=== PATIENT | female | born 1990 | race Caucasian/White ===

== ENCOUNTER 2017-04-12 21:07 | Inpatient (IN) | payer OTHER ==
[~2017-04-12] VITALS: Ht 170.2 cm; Wt 95.7 kg
[2017-04-12] MEDS ORDERED: Sodium Chloride LOK Flush 10 mL Syringe IVFLUSH PRN (21:50)
[2017-04-12] MEDS ORDERED: Hemorrhage Kit, Post Partum XX ONE (21:50)
[2017-04-12] MEDS ORDERED: Methylergonovine 0.2 mg/mL Inj IM PRN (21:50)
[2017-04-12] MEDS ORDERED: Oxytocin 10 Unit/mL Inj IM PRN (21:50)
[2017-04-12] MEDS ORDERED: Oxytocin 30 Units/500 mL LR 30 UNITS in IV Premix 1 EACH IV PRN (21:50)
[2017-04-12] MEDS ORDERED: Ondansetron 2 mg/mL 2 mL Inj IVPUSH PRN (21:50)
[2017-04-12] MEDS ORDERED: Carboprost 250 mCg/mL Inj IM PRN (21:50)
[2017-04-12] MEDS ORDERED: Penicillin G K Inj 5,000,000 UNITS in Dextrose 5% Minibag Plus 100 ML IV ONE (21:55)
[2017-04-12 23:39] LABS: Mean Corpuscular Volume 84.2 fL (81-100)
[2017-04-13] MEDS: Lactated Ringer's 1,000 ML IV PRN ×3 (01:10→06:16)
[2017-04-13] MEDS ORDERED: Oxytocin 30 Units/500 mL LR 30 UNITS in IV Premix 1 EACH IV PRN ×2 (01:15→19:50)
--- NOTE | 2017-04-13 02:18 | HP ---
[address] [address] HISTORY AND PHYSICAL PATIENT: GEORGE HAYWOOD : 1990 MR#: [id number] ADMIT: 04/12/2017 JOB ID: [id number] CHIEF COMPLAINT: Gush of fluid. HISTORY OF PRESENTING ILLNESS: This is a 26 years old 3, para 2-0-0-2, at 40 weeks and 4 days with expected date of delivery of April 09, 2017, dated by last menstrual period, presented with history of gush of fluid started at 17:30. Fluid was clear. The patient reports good movement. She was feeling contractions every 20 minutes. By the time she presented to the hospital she feels her contractions spaced out to be less frequent than every 20 minutes. Blood pressure mildly elevated at presentation as high as 143/92, but mostly at 130s/80s. Denies headache, change in vision. Denies nausea, vomiting or epigastric pain. complicated with history of previous section preceded by normal vaginal delivery at term. was done for arrest of dilatation at 5.5 cm. The patient presented with premature rupture of membranes. Ramos bulb was inserted then Pitocin was started and she progressed to 5.5 cm with no further progress. The patient states that cephalic presentation was confirmed by ultrasound prior to the induction. (2) History of retained IUD. There was no uterine perforation as per reviewed operative report from November 28, 2014. Surgery was done at [place], [place]. Surgery was done by Dr. Harper, and as per surgical report that after cervical dilatation IUD was visualized. The tip of the IUD was grasped and the IUD was rotated 90 degrees and pulled out of the uterus. No hysteroscopy was needed and no laparoscopy was needed. GYNECOLOGIC HISTORY: Menarche at age 11. Last menstrual period was July 03, 2016. Regular menstrual cycles. Denies history of sexually transmitted infections. Denies history of abnormal Pap smears. PAST OBSTETRIC HISTORY: 1. First was January 2014, delivered at 41 weeks gestation. Delivered a female , weight 7 pounds 2 ounces. 2. Second was in October 2015, delivered at 38 weeks gestation via section for arrest of dilatation. Outcome was a male infant, 7 pounds and 3 ounces. The patient presented with premature rupture of membranes. Ramos bulb was inserted and Pitocin was started and she arrested at 5.5 cm. PAST MEDICAL HISTORY: History of active airway disease during her previous in 2015, resolved after . Denies use of an inhalers between pregnancies or during this current . PAST SURGICAL HISTORY: 1. section x1 in 2014. 2. Tonsillectomy at age [age]. 3. Gluteal abscess, was surgically drained with debridement for suspected MRSA infection. Cultures were negative, though patient was in contact with her son who had an MRSA infection at that time. Antibiotics were started before the culture, which may have affected the culture result. Gluteal abscess surgery was done by Dr. Rodriguez. 4. IUD removal under general anesthesia with no laparoscopy, no laparotomy, and no hysteroscopy was needed for the removal. No evidence of mention of uterine perforation as per surgical report that was obtained from [facility] and is available in the paper chart and will be sent for scanning. ALLERGIES: No known drug allergies. MEDICATIONS: 1. vitamins. 2. Used Macrobid during this for a UTI. 3. Used Zofran for nausea and vomiting. FAMILY HISTORY: Mother is healthy. Father has hypertension. Several members on her father's family side have hypertension. Sister is healthy. No family history of twins, congenital deformities, mental or developmental disease. No family history of cancer. SOCIAL HISTORY: Denies smoking, alcohol, or illicit drug abuse. REVIEW OF SYSTEMS: A 10-point review of system is negative except for the items mentioned in the history of presenting illness. PHYSICAL EXAMINATION: Vital signs: Blood pressure mostly in 130s/80s and as high as 143/92. Heart rate 81, temperature 36.8. heart tones baseline 130, moderate variability, positive accelerations, no decelerations. Contractions irregular every 4-9 minutes. General: Alert, oriented to time, place, and person. Head is normocephalic, atraumatic. Neck is supple. Chest: Equal air entry bilaterally. No added sound. Cardiovascular: S1 plus S2 plus 0. Regular rate and rhythm. Abdomen: Gravid. No tenderness. No uterine tenderness. No incisional tenderness. Estimated weight by Bob's maneuver is 8 pounds. Cervical exam: Cervix is 4 cm, 70%, -2, soft and posterior. Patel's score of 7. Bedside ultrasound confirmed cephalic presentation. LABORATORIES: Blood type is O-positive. Antibody screening is negative. Rubella immune. RPR nonreactive. Hepatitis B surface antigen negative, HIV negative, varicella immune. HIV negative. Diabetes screening on January 28, 2017, was within normal limits 88. Group B strep positive on March 02, 2017. ADMISSION LABORATORIES: CBC: White blood cells 13.2, hemoglobin 10.6, hematocrit 31.9, platelets 307. BUN 11, creatinine 0.53, uric acid 5.4, AST 16, ALT 16. Urine random creatinine 170, urine random total protein 11, protein to creatinine ratio 0.06. Gonorrhea and chlamydia DNA urine screen pending. ASSESSMENT: This is a 26 years old 3, para 2-0-0-2, at 40 weeks and 4 days, with expected date of delivery of April 09, 2017, presented with spontaneous rupture of membranes and early labor. GBS positive. History of previous one section preceded with one vaginal delivery, both were at term. History of possible methicillin-resistant Staphylococcus aureus based on history and presentation and no positive culture. PLAN: Discussed with patient risks, benefits and alternatives of elective section versus trial of labor after section. Risk of trial of labor after section was reviewed with the patient. Calculated success rate is 70%. Pitocin is recommended after SROM to augment labor and shorten the latent phase to decrease risk of infection. Use of pitocin may increase risk of uterine rupture to approximately 1.5% to 1.7%, which is higher in a woman who undergoes induction of labor compared to a woman who goes into spontaneous labor where risk of uterine rupture is approximately 0.7%. Risk of section which includes, not limited to, risk of infection, bleeding, injury to other organs, nerve injury, risks of blood transfusion, risk of anesthesia, effect on future fertility were discussed with the patient in details. All risks associated with section is higher if section is performed after a failed trial of labor after section compared to elective repeat section. All questions were answered. The patient desires to proceed with a trial of labor after section. Patient signed informed consent earlier in the office with Dr. Alicia. A copy of the consent is in the chart. Induction of labor consent was signed today. Risks, benefits and alternatives of induction were discussed with the patient. Expectant management verses augmentation with Pitocin were discussed in details. Patient desires to proceed with Pitocin. Penicillin started for group B strep positive. Swabs were collected for MRSA screening. Continue close monitoring of contraction and heart tones tracing. MTDD
[2017-04-13] MEDS: Penicillin G K Inj 3,000,000 UNITS in IV Premix 1 EACH IV SCH ×4 (05:32→18:10)
[2017-04-13] MEDS: fentaNYL-PF 50 mCg/mL 2 mL Inj IVPUSH PRN ×2 (07:20→12:27)
[2017-04-13] MEDS: Lactated Ringer's 1,000 ML IV SCH ×2 (10:29→15:10)
[2017-04-13] MEDS ORDERED: Phenylephrine/NS-PF 100 mCg/mL 5 mL Syringe IVPUSH ONE (11:17)
[2017-04-13] MEDS ORDERED: Ondansetron 2 mg/mL 2 mL Inj ONE (11:17)
[2017-04-13] MEDS ORDERED: Oxytocin 10 Unit/mL Inj ONE (11:17)
[2017-04-13] MEDS ORDERED: fentaNYL 2 mCg/mL-Bupivicaine 0.125% 100 mL Premix EPIDURAL ONE (15:06)
[2017-04-13] MEDS ORDERED: Lactated Ringer's 500 ML IV ONE (15:26)
[2017-04-13] MEDS ORDERED: Lactated Ringer's 1,000 ML IV SCH ×2 (15:26→19:49)
[2017-04-13] MEDS ORDERED: Atropine 1 mg/10 mL (Code) Syringe IVPUSH PRN (15:30)
[2017-04-13] MEDS ORDERED: EPHEDrine Sulfate 50 mg/mL Inj IVPUSH PRN (15:30)
[2017-04-13] MEDS ORDERED: fentaNYL 2 mCg/mL-Bupiv 0.125% 100 ML EPIDURAL SCH (15:30)
--- NOTE | 2017-04-13 15:31 | PCM.HPANE ---
Patient Data Surgeon Admitting Provider:Shahid Caballero DO Attending Provider:Shahid Caballero DO Primary Care Physician:Shahid Caballero DO Other Provider:Ezequiel Fraser Anesthesia Reason for Visit Term Labor TERM LABOR Ht/WT & BMI Body Mass Index Allergies Coded Allergies: No Known Allergies (Unverified , 04/12/17) Past Anesthesia History Anesthesia History: Denies:: Abnormal Airway, Anesthesia Reactions, Difficult Intubation, Fam Anesthesia Reaction, Fam Malignant Hypertherm, Malignant Hyperthermia Diabetes History Hx Diabetes?: No MRSA MRSA: No History History of ENT Problems?: No HEENT History: Denies:: Abnormal Airway Cataracts Difficult Intubation Dysphagia Glaucoma Hearing Problem Sinus Problem TMJ Denture Type: None Teeth Condition: Within Normal Limits Hx of Heart Problems?: No Cardiovascular History: Denies:: AICD Abdominal Aortic Aneurism Atrial Fibrillation Cardiac Surgery Chest Pain Congestive Heart Failure Coronary Artery Disease Edema Heart Murmur Hypertension Irregular Heartbeat Pacemaker Peripheral Vascular Rheumatic Fever Thrombophlebitis Valvular Heart Disease Hx of Respiratory Problem?: No Respiratory History: Denies:: Asthma COPD Chest Surgery Cough Dyspnea Emphysema Hemoptysis Oxygen Administration Pneumonia Pulmonary Embolism Tuberculosis Use of C-PAP Machine Use of Inhalers / NEBS Hx Neurologic Problems?: No Neurological History: Denies:: Alzheimer's Disease CVA Dementia Dizziness Headaches Multiple Sclerosis Parkinson's Disease Peripheral Neuropathy Seizures TIA Hx of GI Problems?: No Gastrointestinal History: Denies:: Cirrhosis Diverticulitis Gall Bladder Disease Gastroesphageal Reflux Gastrointestinal Bleeding Heartburn Hepatitis Hiatal Hernia Liver Disease Rectal Bleeding Hx of Problems?: No Genitourinary History: Denies:: HX of Hemodialysis Kidney Stones Urinary Tract Infection HX of Peritoneal Dialysis: No Female Hx: Positive for:: Currently Skin History: Denies:: History Skin Disorders? Pressure Ulcers Hx Musculoskeletal Problems?: No Musculoskeletal History: Denies:: Back Injury Degenerative Joint Fibromyalgia Joint Replacement Musculoskeletal Trauma Myasthenia Gravis Osteoarthritis Rheumatoid Arthritis Systemic Lupus Hx of Psycho/Social Problems?: No Hx Surgeries?: Yes Hx Any Other Health Problems?: No Other History: Denies:: Cancer Endocrine Disease Hospitalization Thyroid Disease History Blood Transfusions: Denies:: Accept Blood Products? Blood Transfuse Reaction Blood Transfusions Hx Diabetes: No Stop/Bang LESLYE Risk Assessment: Low Risk, <3 Yes Risk Assessment Category Category 1A: Patient has history of documented sleep apnea, and HAS NOT received any narcotic, sedative or anesthesia administration during this stay. Category 1B: Patient has history of documented sleep apnea, and HAS received any narcotic , sedative or anesthesia administration during this stay Category 2: Patient has SUSPECTED Obstructive Sleep Apnea, and HAS received any narcotic , sedative or anesthesia administration during this stay. Category 3: Patient has SUSPECTED Obstructive Sleep Apnea and HAS NOT received narcotic, sedative or anesthesia administration during this stay. Category 4: Outpatient in Procedural Areas with known sleep apnea or who screen positive for High Risk via the STOP/BANG questionnaire. Exam Exam General Appearance: Alert HEENT/AIRWAY: MP 1 Lungs: Clear to Auscultation Heart: Exam Unremarkable Meds/Labs/Diagnostics Admission Meds Current Medications Penicillin G Potassium 3359805 units/Dextrose/ Water 100 ml @ 240 mls/hr ONCE ONCE IV Last administered on 04/13/17 01:24; Start 04/12/17 at 21:55; Stop at 22:19; Status DC Penicillin G Potassium/ Dextrose [id number] units/Premix 50 ml @ 100 mls/hr Q4 IV Last administered on 04/13/17 13:50; Start 04/13/17 at 04:30 Lactated Ringer's (Lr) 1,000 ml @ 125 mls/hr Q8H IV Last administered on 15:10; Start 04/13/17 at 01:12 Labs Test 04/12/17 22:03 04/12/17 22:30 04/13/17 13:45 Urine Random Creatinine 170mg/dL (16-392) Urine Random Total Protein 11mg/dL (0-15) Urine Protein/Creatinine Ratio 0.06 (0-200) White Blood Count 13.2th/mm3 (3.8-10.1) Red Blood Count 3.79mil/mm3 (3.90-5.20) Hemoglobin 10.6g/dL (12.0-15.6) Hematocrit 31.9% (35.0-46.0) Mean Corpuscular Volume 84.2fL (81-100) Mean Corpuscular Hemoglobin 28.0pg (27.0-35.0) Mean Corpuscular Hemoglobin Concent 33.2% (32.0-37.0) Red Cell Distribution Width 14.6% (12.3-15.4) Platelet Count 307bil/L (150-400) Blood Urea Nitrogen 11mg/dL (6-20) Creatinine 0.53mg/dL (0.57-1.00) Uric Acid 5.4mg/dL (2.6-7.2) Aspartate Amino Transf (AST/SGOT) 16U/L (0-50) Alanine Aminotransferase (ALT/SGPT) 16U/L (0-32) Hold Urine Received (Received) Plan Impression Patient chart reviewed, patient interviewed and anesthestic plan with risks, benefits, and alternatives discussed, and informed consent obtained. NPO per Anesth. Guidelines: Yes ASA Physical Status: ASA2 Mod Systemic Disease Anesthetic Plan: Epidural Bene/Risks/Altern/Consents: Yes HP Complete Prior to Induction: Yes Chintan Knox MD April 13, 2017 15:31
--- NOTE | 2017-04-13 18:18 | PCM.PNOBIP ---
Subjective Date of Service April 13, 2017 Subjective Has made minimal change throughout today- was 6 at 9am now 7 and epidural placed w/ AROM of forebag. IUPC placed. Pitocin at 11 Pain Management: Epidural Labs Laboratory Tests 04/12/17 22:30: White Blood Count 13.2, Red Blood Count 3.79, Hemoglobin 10.6, Hematocrit 31.9, Mean Corpuscular Volume 84.2, Mean Corpuscular Hemoglobin 28.0, Mean Corpuscular Hemoglobin Concent 33.2, Red Cell Distribution Width 14.6, Platelet Count 307 Exam Vital Signs Vital Signs Contraction frequency in minutes: MVUs: Heart Tracings Heart Tones Baseline 130 bpm/moderate variability/early decels Tocometry/IUPC Contraction frequency in minutes: MVUs: Sterile Vaginal Exam Cervical Dilation: 7 cms Cervical Effacement: 80 % Station: -1 Exam General: Alert, Oriented X3 OB Intrapartum Assessment/Plan Intrapartum plan: Continue expected management, IUPC placed (- Titrate pitocin until contractions are adequate. Consider RLTCS if no cervical change w/ adequate cx w/ IUPC, hopeful for progress after AROM of forebag) Zari Sargent MD April 13, 2017 18:18
[2017-04-13] MEDS ORDERED: Carboprost 250 mCg/mL Inj IM PRN (19:50)
[2017-04-13] MEDS ORDERED: Witch Hazel-Glycerin Pads TOPICAL PRN (19:50)
[2017-04-13] MEDS ORDERED: Methylergonovine 0.2 mg/mL Inj IM PRN (19:50)
[2017-04-13] MEDS ORDERED: LANOlin HPA 7 Gm Ointment TOPICAL PRN (19:50)
[2017-04-13] MEDS ORDERED: Hemorrhage Kit, Post Partum XX ONE (19:50)
[2017-04-13] MEDS ORDERED: Benzocaine (Dermoplast) 20% 60 Gm Spray TOPICAL PRN (19:50)
[2017-04-13] MEDS ORDERED: Oxytocin 10 Unit/mL Inj IM PRN (19:50)
--- NOTE | 2017-04-13 21:01 | OP ---
[address] [address] OPERATIVE REPORT PATIENT: GEORGE HAYWOOD : 1990 MR#: [id number] ADMIT: 04/12/2017 JOB ID: [id number] DATE OF SURGERY: 04/13/2017 PREOPERATIVE DIAGNOSIS(ES): 1. A 26-year-old, -0-0-2 female at 40 + 4 weeks gestation admitted with spontaneous rupture of membranes. 2. History of section x1 on her last for arrest of dilation at 5.5 cm. 3. History of retained intrauterine device. POSTOPERATIVE DIAGNOSIS(ES): 1. A 26-year-old, -0-0-2 female at 40 + 4 weeks gestation admitted with spontaneous rupture of membranes. 2. History of section x1 on her last for arrest of dilation at 5.5 cm. 3. History of retained intrauterine device. PROCEDURE PERFORMED: Spontaneous vaginal delivery of a live born female infant, born on April [birth year], 2019 at 1920 hours weighing 35- 37 g or 7 pounds 12 ounces with Apgars of 8 at one minute, 9 at five minutes. SURGEON: Zari Sargent MD. ANESTHESIA: Epidural. ESTIMATED BLOOD LOSS: 400 cc. FLUID REPLACEMENT: Crystalloid in labor. COMPLICATIONS: None apparent. FINDINGS: Live-born female infant with spontaneous cry and spontaneous movement of all four extremities with a shoulder dystocia lasting 30 seconds. INDICATIONS: This is a 26-year-old, -0-0-2 female at 40 + 4 weeks gestation with an EDC of April 09, 2017 who is admitted for spontaneous rupture of membranes. Her was complicated by history of section during her last . Prior to this, she had had a normal spontaneous vaginal delivery. She had a for arrest of dilation at 5.5 cm. She also has history of a recent IUD. Her current had been managed by Dr. Caballero, but she was transferred at the end of due to her history of section x1. laboratory data showed blood type O positive, antibody screen negative, rubella immune, varicella immune, hep B surface antigen negative, RPR nonreactive, HIV negative, and GBS positive. She was admitted with spontaneous rupture of membranes and penicillin was started per protocol. Penicillin was started and increased to 9 milliunits which she stayed at throughout the morning. She was noted to be 4 cm dilated at the time of admission. Six hours after admission, she had progressed to about 6 cm where she stayed for the majority of the afternoon. She did get an epidural placed at around 3 p.m. on the afternoon of the . She was checked and noted to be 6-7 cm dilated with a forebag that was then artificially ruptured and an IUPC was then placed. After IUPC was in place, her contractions were noted to be inadequate and her Pitocin was increased beyond 9 milliunits and, following this, she then quickly progressed to complete. PROCEDURE IN DETAIL: The patient is noted to be complete and pushing, so she was placed in dorsal lithotomy position, prepped and draped in the usual sterile fashion for vaginal delivery. She pushed and the head delivered spontaneously in the JUDI position over an intact perineum. The left shoulder was the anterior shoulder and there was some resistance with delivery of the shoulder, so the bed height was dropped to the floor and the patient was placed in Gillian positioning and suprapubic pressure was applied. The attempts at delivering the posterior arm were unsuccessful so the infant was rotated in a Wood corkscrew maneuver until the left shoulder was moved away from the pubic symphysis at which point the shoulder delivered easily and the remainder of the was then easily delivered. The cord was clamped and cut after a 60 second cord clamping delay and cord blood was obtained. The placenta delivered intact spontaneously after Pitocin was started per protocol and was passed off the table. There was noted to be some remaining placental membranes on examination which were removed with a ring forceps. Examination of the perineum showed a second-degree laceration which was repaired with 3-0 Vicryl in the usual running fashion. The patient tolerated this procedure well, recovered in labor and delivery with her . All sponge, needle, and instrument counts were correct.
[2017-04-14 07:22] LABS: Mean Corpuscular Hemoglobin 27.5 pg (27.0-35.0); Mean Corpuscular Volume 84.7 fL (81-100)
[2017-04-14] MEDS ORDERED: Ascorbic Acid 500 mg Tablet PO SCH (08:00)
--- NOTE | 2017-04-14 11:38 | PCM.PNOBPP ---
Subjective Date of Service April 14, 2017 Post : Vaginal Delivery after [place] Visit History Successful TOLAC with Dr. Sargent yesterday, mild left shoulder dystocia and a second-degree perineal laceration; otherwise no complications from delivery. Subjective Lila endorses she feels "really good" this morning; she and baby are bonding well and successfully; Lila notes blistering on her nipples from the . Scant vaginal discharge, mildly bloody with very small clots; filling less than 1 pad. Appropriate uterine cramping with . Otherwise, Lila has no complaints or concerns. The carseat is ready, the family is ready; good social support at home with extended family. Discussed with both Lila and Rolly (DAPHNE) the options for contraception in the coming weeks. We will discuss further in clinic. Lochia: Normal Pain Management: PO pain meds (ibuprofen only), Good Pain Control Gastrointestinal: Good Appetite, No N/V, Passing Flatus, Passing Stool, Normal Bowel Movement Postop Activity: Ambulating Independently Group B Strep Results: Positive Rubella: Immune Blood Type: O RH Type: Positive Labs Laboratory Tests 04/14/17 07:05: White Blood Count 11.0, Red Blood Count 3.13, Hemoglobin 8.6, Hematocrit 26.5, Mean Corpuscular Volume 84.7, Mean Corpuscular Hemoglobin 27.5, Mean Corpuscular Hemoglobin Concent 32.5, Red Cell Distribution Width 14.7, Platelet Count 221 Exam Vital Signs Vital Signs: VS reviewed, stable Exam Abdomen: Fundus firm Perineum: Laceration (second degree, repaired yesterday, no complications) : Voiding without difficulty Extremities: Edema 1+ (bilateral, R > L, but this was her baseline. No unusualy warmth or pain in lower legs.) Lungs: Clear to Auscultation, Normal Air Movement Heart: Exam Unremarkable General: Alert, Oriented X3, Cooperative, No Acute Distress Additional Information Osteopathic evaluation reveals a right anterior innominate. Verbal consent given for osteopathic manipulative treatment. Balanced ligamentous tension applied to pelvis, with resolution of somatic dysfunction. OB Post Assessment/Plan Assessment 26-year-old now mom, with successful , no concerns or questions in the period. Problems: (1) , delivered, current hospitalization Status: Resolved ICD Code: O34.219 (2) SROM (spontaneous rupture of membranes) Status: Resolved (3) Somatic dysfunction of pelvic region Status: Resolved ICD Code: M99.05 Pain Evaluation: Adequate Pain Control Post plan: Continue routine post care, Anticipate discharge home today Plan: 1. Discharge home later this evening once baby has passed screening exams and has appropriate bilirubin and weight. 2. check for baby scheduled in the office in [place] for 2:10 p.m. on April 16. 3. Follow up in [address] Caballero at [facility].. You will need to make this appointment. Feel free to contact us if you have any OB questions or concerns, including vomiting, fever, shortness of breath, racing heart rate, dizziness or increasing abdominal pain (or constipation for 2 days or more). 4. Nothing in the vagina for 6-8 weeks. control can be discussed during the appointment in 6 weeks. Shahid Caballero DO April 14, 2017 11:37
--- NOTE | 2017-04-14 11:46 | PCM.DIOB ---
Obstetrical Disch Instruction Date of Service: April 14, 2017 Dates of Hospitalization Date of Hospital Admission April 12, 2017 at 21:36 Providers Admitting Physician: Shahid Caballero DO Primary Care Physician: Shahid Caballero DO Attending Physician: Shahid Caballero DO Discharge Diagnosis Problems: (1) , delivered, current hospitalization Status: Resolved ICD Code: O34.219 (2) SROM (spontaneous rupture of membranes) Status: Resolved (3) Somatic dysfunction of pelvic region Status: Resolved ICD Code: M99.05 Diet Discharge Diet: No restrictions Activity Discharge Activity-General: Pelvic Rest for 6 weeks, Be up and about, Balance rest and activity, No lifting >15 pounds for 2 weeks Dressing and Incisional Care Hygiene: May shower, DO NOT soak incision under water, NO bathtub, hot tub or whirlpool Additional Instructions Discharge Instructions 1. Discharge home later this evening once baby has passed screening exams and has appropriate bilirubin and weight. 2. Amagon check for baby scheduled in the office in [place] for 2:10 p.m. on April 16. 3. Follow up in [address] [facility]allero at [facility].. You will need to make this appointment. Feel free to contact us if you have any OB questions or concerns, including vomiting, fever, shortness of breath, racing heart rate, dizziness or increasing abdominal pain (or constipation for 2 days or more). 4. Nothing in the vagina for 6-8 weeks. control can be discussed during the appointment in 6 weeks. Follow Up Plan Follow-up Provider (F9): Shahid Caabllero DO Follow-up appointment: Weeks (6) Call your provider for: Fever or Chills, Shortness of breath, Heavy vaginal bleeding, Excessive constipation, Vaginal discomfort, Red painful breasts Shahid Caballero DO April 14, 2017 11:46
[2017-04-14] MEDS ORDERED: IBUP800T28 PO (11:50)
[2017-04-14] MEDS ORDERED: PREN-56 PO (11:50)
[2017-04-14] MEDS ORDERED: DOCU-41 PO (11:50)
[2017-04-14] MEDS ORDERED: FERR-74 PO (11:50)
[2017-04-14] MEDS ORDERED: Ascorbic Acid PO (11:50)
[2017-04-14 13:21] VITALS: BP 122/78; PULSE 84; RESP 18
--- NOTE | 2017-04-14 22:13 | PCM.DC.OB ---
Obstetrical Discharge Summary Date of Service April 14, 2017 Date of hospital admission April 12, 2017 at 21:36 Date of Discharge: April 14, 2017 Providers Admitting Physician: Janett Caballero DO Primary Care Physician: Janett Caballero DO Attending Physician: Janett Caballero DO Problems: (1) , delivered, current hospitalization Status: Resolved ICD Code: O34.219 (2) SROM (spontaneous rupture of membranes) Status: Resolved (3) Somatic dysfunction of pelvic region Status: Resolved ICD Code: M99.05 Brief History and Physical: Lila is a previously , 26 yo woman who presented at 40 weeks 4 day gestation with SROM to [facility]. Because she desired TOLAC, expected care for labor and delivery was managed by my colleague Dr. Sargent. care conducted by myself and my clinic partners throughout her . 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 Hospital Course: Lila's membranes were ruptured for approximately 35 hours, but she received several doses of I.V. penicillin for her known GBS-positive status. Dr. Sargent managed the labor and delivery, which resulted in a successful TOLAC and of a baby girl by without serious complication. Lila sustained a mild second-degree perineal laceration, but this was repaired. At Day 1 post-, she was feeling quite well and was eager to return home. Both Mom and baby are bonding well, and father Rolly is present and very much involved. Please see progress note dated 04/14/17 for my physical exam findings. Lila and baby "Liliana" are discharged to home, with follow-up scheduled with me in clinic in 2 days; Lila will follow-up with me in 6 weeks for routine post- care. ([Ascorbic Acid]) 500 MG TABLET 500 MG PO BIDWM Prescribed by: JANETT CABALLERO DO Docusate Sodium (Colace) 100 Mg Capsule 100 MG PO BID Prescribed by: JANETT CABALLERO DO Ferrous Sulfate (Feosol) 325 Mg Tablet 325 MG PO BIDWM Prescribed by: JANETT CABALLERO DO Ibuprofen (Ibuprofen) 800 Mg Tablet 600 MG PO TID PRN PRN For Pain Prescribed by: JANETT CABALLERO DO [id number]/Iron Fumarate/FA/Dss ( 19 Tablet) 1 Each Tablet 1 EACH PO DAILY Prescribed by: JANETT CABALLERO DO Discharge Diet: No restrictions Discharge Activity-General: Pelvic Rest for 6 weeks, Be up and about, Balance rest and activity, No lifting >15 pounds for 2 weeks copies to: Janett Caballero David M DO April 14, 2017 22:13
== END 2017-04-14 18:30 | disposition home or self-care (01) | DRG 775 ==
LOC: FBCO 21:07 → FBC 21:36
PROVIDERS: ADMIT Family Medicine; ATTEND Obstetrics & Gynecology
PROC: 10E0XZZ Delivery of Products of Conception, External Approach (ICD-10-PCS; principal; 2017-04-13)
PROC: 0KQM0ZZ Repair Perineum Muscle, Open Approach (ICD-10-PCS; 2017-04-13)
PROC: 10907ZC Drainage of Amniotic Fluid, Therapeutic from Products of Conception, Via Natural or Artificial Opening (ICD-10-PCS; 2017-04-13)
PROC: 10H07YZ Insertion of Other Device into Products of Conception, Via Natural or Artificial Opening (ICD-10-PCS; 2017-04-13)
DX: O34.211 Maternal care for low transverse scar from previous cesarean delivery (principal); O70.1 Second degree perineal laceration during delivery; M99.05 Segmental and somatic dysfunction of pelvic region; O99.824 Streptococcus B carrier state complicating childbirth; Z37.0 Single live birth; Z3A.40 40 weeks gestation of pregnancy; O66.0 Obstructed labor due to shoulder dystocia